=== PATIENT | female | born 1975 | race Caucasian/White ===

== ENCOUNTER 2017-03-13 20:13 | Observation (INO) | payer MEDICAID, SELFPAY ==
[~2017-03-13 20:13] MED LIST: ISOVUE-370 76%-LOCM 1 ML ONE
--- NOTE | 2017-03-13 20:38 | CT ---
CT HEAD WITHOUT CONTRAST: 03/13/17 Multiple axial tomograms obtained through the head without IV enhancement. HISTORY: Stroke alert. Left side facial droop and left upper extremity weakness. The ventricles have normal size and position. There is no evidence of cortical infarct. There is no e vidence of mass, edema, or hemorrhage. The sinuses and mastoids are well aerated. IMPRESSION: No evidence of acute abnormality. Findings relayed to Dr. Angel at 8:26 p.m. POS: [facility]
--- NOTE | 2017-03-13 20:53 | RAD ---
PORTABLE CHEST: 03/13/17 HISTORY: Left face numbness. FINDINGS/IMPRESSION: The lungs are clear. No infiltrate seen. The heart size is upper normal. No acute lung process identi fied. POS: [facility]
[2017-03-13 21:06] LABS: #Basophils 0.1 thou/uL (0.0-0.2); #Eosinphils 0.3 thou/uL (0.0-0.7); #Lymphocytes 3.1 thou/uL (1.20-3.40); #Monocytes 0.5 thou/uL (0.11-0.59); #Neutrophils 3.4 thou/uL (1.40-6.50); %Basophils 1.1 % (0.0-1.0); %Eosinophils 3.6 % (0.0-10.0); %Lymphocytes 42.7 % (21.0-51.0); %Monocytes 6.4 % (0.0-10.0); Hematocrit 39.5 % (36.0-47.0); Mean Platelet Volume 6.7 fL (7.4-10.4); White Blood Cell (WBC) Count 7.2 thou/uL (4.8-10.8)
[2017-03-13 21:12] LABS: PTT 28.1 SEC (22.9-36.1); Prothrombin Time 13.3 SEC (12.0-14.7)
[2017-03-13 21:18] LABS: Lactic Acid - Sepsis 2.2 mmol/L (0.5-2.2)
[2017-03-13 21:20] LABS: ALT (SGPT) 98 U/L (8-55); AST (SGOT) 83 U/L (5-34); Alkaline Phosphatase 78 U/L (40-150); Anion Gap 17 mmol/L (10-20); BUN (Urea Nitrogen) 17 mg/dL (7.0-18.7); Bilirubin, Total 0.4 mg/dL (0.2-1.2); Calc. Creatinine Clearance 0 mL/min (70-130); Calcium 8.8 mg/dL (7.8-10.44); Carbon Dioxide 19 mmol/L (22-29); Chloride 102 mmol/L (98-107); Estimated GFR-MDRD 87; Globulin 3.7 g/dL (2.4-3.5); Magnesium 2.1 mg/dL (1.6-2.6); Protein, Total 7.7 g/dL (6.0-8.3)
[2017-03-13 21:24] LABS: Troponin I Less than 0.010 ng/mL (< 0.028)
[2017-03-13 21:33] LABS: Bilirubin Negative (Negative); Blood, Urine Negative (Negative); Glucose, Urine (Dipstick) 250 mg/dL (Negative); Ketone, Urine Negative (Negative); Nitrite Negative (Negative); Protein, Urine (Dipstick) Negative (Neg-Trace); Urobilinogen 0.2 mg/dL (0.2-1.0)
--- NOTE | 2017-03-13 21:35 | CT ---
CT ANGIO OF NECK: 03/13/17 Multiple axial tomograms obtained through the neck with IV enhancement and arterial phase following a [facility] protocol with multiplanar reconstruction and 3D postprocessing. HISTORY: Left sided weakness. Stroke alert. FINDINGS: No evidence of stenosis at the origin of the arch vessels. Both common carotid arteries are unremarka ble. Carotid bifurcation and internal carotid arteries are also unremarkable. There is no evidence of extracranial carotid dissection or stenosis. The vertebral arteries are patent and appear unremarkable. IMPRESSION: Unremarkable CT angio neck. CT ANGIO OF HEAD: Multiple axial tomograms obtained through the head to assess cerebral circulation with angio protocol , multiplanar reconstructions, and 3D postprocessing. HISTORY: Left sided weakness. Stroke alert. The intracranial internal carotid arteries appear unremarkable. Anterior cerebral arteries and middle cerebral arteries are patent and symmetric. The basilar artery is patent. Posterior cerebrals are pa tent and symmetric. No evidence of stenosis or occlusion identified. IMPRESSION: Unremarkable CT angio of head. POS: [facility]
[2017-03-13 21:43] LABS: Amphetamine Not Detected (NotDetected); Methadone Not Detected (NotDetected); Methamphetamine Not Detected (NotDetected)
[2017-03-13] MEDS ORDERED: Acetaminophen 500 MG TAB ONE (23:10)
[2017-03-13 23:39] LABS: Troponin I Less than 0.010 ng/mL (< 0.028)
[2017-03-13] MEDS ORDERED: Ondansetron ODT 4 MG TAB SL PRN (23:58)
[2017-03-13] MEDS ORDERED: Ondansetron HCl/PF 4 MG/2 ML Vial IVP PRN (23:58)
[2017-03-13] MEDS ORDERED: Acetaminophen 325 MG TAB PO PRN (23:58)
[2017-03-14 00:20] VITALS: BMI 32.6
[2017-03-14] MEDS ORDERED: Dextrose 5% in Water 1,000 ML IV PRN (00:44)
[2017-03-14] MEDS ORDERED: Guaifenesin DM 100-10/5 ML UDCUP PO PRN (00:44)
[2017-03-14] MEDS ORDERED: Senokot 8.6 MG TAB PO PRN (00:44)
[2017-03-14] MEDS ORDERED: Acetaminophen 325 MG TAB PO PRN (00:44)
[2017-03-14] MEDS ORDERED: Dextrose 50% Abboject 50 ML SYRINGE SLOW IVP PRN (00:44)
[2017-03-14] MEDS ORDERED: HumaLOG 300 UNITS/3 ML VIAL SC PRN (00:44)
[2017-03-14] MEDS ORDERED: Mag-Al 1200 mg/1200 mg/30 ML UDCUP PO PRN (00:44)
[2017-03-14] MEDS ORDERED: Labetalol HCl 100 MG/20 ML VIAL SLOW IVP PRN (00:44)
[2017-03-14] MEDS: Morphine PF 1 MG/ML SYR IVP PRN ×3 (01:16→16:40)
[2017-03-14 05:28] LABS: #Basophils 0.1 thou/uL (0.0-0.2); #Eosinphils 0.3 thou/uL (0.0-0.7); #Monocytes 0.6 thou/uL (0.11-0.59); #Neutrophils 3.1 thou/uL (1.40-6.50); %Basophils 1.3 % (0.0-1.0); %Eosinophils 3.9 % (0.0-10.0); %Lymphocytes 49.3 % (21.0-51.0); %Monocytes 7.6 % (0.0-10.0); Hematocrit 39.1 % (36.0-47.0); Mean Platelet Volume 6.8 fL (7.4-10.4); Red Blood Cell (RBC) Count 4.08 mill/uL (4.20-5.40); White Blood Cell (WBC) Count 8.1 thou/uL (4.8-10.8)
[2017-03-14 05:33] LABS: Hemoglobin A1c 6.7 % (4.0-6.0)
[2017-03-14 05:53] LABS: ALT (SGPT) 98 U/L (8-55); AST (SGOT) 79 U/L (5-34); Alkaline Phosphatase 71 U/L (40-150); Anion Gap 15 mmol/L (10-20); BUN (Urea Nitrogen) 15 mg/dL (7.0-18.7); Bilirubin, Total 0.3 mg/dL (0.2-1.2); Calc. Creatinine Clearance 175 mL/min (70-130); Calcium 9.8 mg/dL (7.8-10.44); Carbon Dioxide 22 mmol/L (22-29); Chloride 104 mmol/L (98-107); Cholesterol 233 mg/dl (< 200 Desired); Estimated GFR-MDRD Greater than 90; LDL Cholesterol, Calculated 148 mg/dL
--- NOTE | 2017-03-14 06:41 | HP ---
REASON FOR ADMISSION: Left face numbness and weakness with left upper extremity weakness prior to arrival. HISTORY OF PRESENT ILLNESS: The patient gives a history of face numbness and weakness, which started around 5:00 p.m. This was associated with left upper extremity weakness as well, which completely got resolved on arrival in the ER. She has had headache for the last two days. She has no complaints of cough or expectoration. No complaints of chest pain, palpitation, PND or orthopnea. On arrival here in the ER, she has had CT angio of the brain and CT brain done, which have not revealed any acute stroke or abnormality. The patient states she moved from [place] recently and has no primary care physician here in the area. She used to see Dr. Stokes in [place]. PAST MEDICAL AND SURGICAL HISTORY: History of chronic DVT and PE starting from 1989. She has been chronically on Eliquis. She thinks she has ?hereditary thrombosis, but she cannot recollect which one. Hypertension, gastroesophageal reflux disease, both knee surgery, hysterectomy. CURRENT MEDICATIONS: She is on Norvasc 10 mg daily, potassium chloride 10 mEq p.o. daily, Protonix 40 mg daily, benazepril with hydrochlorothiazide 20/25 mg p.o. daily, Lasix 40 mg p.o. daily, [place] p.r.n. for pain, Eliquis 5 mg twice daily. ALLERGIES: To CELEBREX, TORADOL, ULTRAM. PERSONAL HISTORY: Does not abuse alcohol or drugs. No history of smoking. Lives with her . FAMILY HISTORY: Mother is on hemodialysis for end-stage renal disease and has had hypertension as well. Father is healthy. REVIEW OF SYSTEMS: The following complete review of systems was negative, unless otherwise mentioned in the HPI or below: Constitutional: Weight loss or gain, ability to conduct usual activities. Skin: Rash, itching. Eyes: Double vision, pain. ENT/Mouth: Nose bleeding, neck stiffness, pain, tenderness. Cardiovascular: Palpitations, dyspnea on exertion, orthopnea. Respiratory: Shortness of breath, wheezing, cough, hemoptysis, fever or night sweats. Gastrointestinal: Poor appetite, abdominal pain, heartburn, nausea, vomiting, constipation, or diarrhea. Genitourinary: Urgency, frequency, dysuria, nocturia. Musculoskeletal: Pain, swelling. Neurologic/Psychiatric: Anxiety, depression. Allergy/Immunologic: Skin rash, bleeding tendency. PHYSICAL EXAMINATION: GENERAL: The patient is a 41-year-old female who is currently not in any acute distress. VITAL SIGNS: Blood pressure 189/86 on arrival, pulse 100 per minute, respiratory rate 20 per minute, temperature 98.7 degrees Fahrenheit, saturating 95% on room air. NECK: Supple, no elevated JVD. HEENT: Eyes: Extraocular muscles intact. Pupils reacting to light. Oral cavity mucous membranes are moist. No exudates or congestion. CARDIOVASCULAR: S1, S2 heard. Regular rhythm. RESPIRATORY: Air entry 2+ bilateral. No rales or rhonchi. ABDOMEN: Soft, bowel sounds heard. No tenderness, rigidity or guarding. EXTREMITIES: No peripheral edema or calf tenderness. VASCULAR SYSTEM: Peripheral pulses 2+ bilateral, no ischemic ulcerations or gangrene. CENTRAL NERVOUS SYSTEM: No focal deficits seen in all four extremities. She has strength of 5/5. Tone is normal in all 4 extremities. Reflexes are 2+ bilateral. Babinski is downgoing in both lower extremities. The patient appears to forcibly keep her left half of her face pulled. I say this because the left facial droop sometimes completely resolves when she is trying to talk, but then she realizes that and tries to pull it immediately to her left side. There was no tongue deviation. No other cranial nerve deficits seen. She is able to frown well and raise her eyebrows. PSYCHIATRIC: No obvious hallucinations or delusions. LABORATORY DATA AND IMAGING: Urine drug screen is positive for opiates and oxycodone. AST 83, ALT 98. Troponin I 0.01. Albumin is 4.0. Serum test is negative. TSH 1.82. Serum glucose is 199, serum bicarbonate 19, BUN 17 , creatinine 0.7. White count of 7, H&H is 13 and 39, platelet count is 221 with 46% neutrophils, MCV is 96. EKG done shows sinus tachycardia at 112 beats per minute. CLINICAL IMPRESSION AND PLAN: The patient will be under observation on stroke unit for what appeared to be a TIA on arrival. Currently, her left facial droop is likely a conversion disorder, nevertheless, would confirm the same from Neurology. She has had CT angio brain done, which has not revealed any acute abnormalities. CT brain has not revealed any acute abnormalities. She also has history of bilateral lower extremity DVTs off and on from 1989 and has had one episode of PE as well and is on Eliquis for the same. We will continue the same dose of Eliquis for now. We will give 1 dose of 325 mg aspirin and reduce it to 81 mg daily in view of her being on Eliquis. We will continue her Norvasc as before and a small dose of benazepril along with Lipitor. Once she is cleared by Neurology, the patient can be discharged home. No further workup will be ordered. We will obtain hemoglobin A1c in view of her serum sugars being 199 around 200 on arrival. Please note I have seen and examined the patient on 03/13/2017. [facility]
--- NOTE | 2017-03-14 08:59 | PDOC.PN ---
- Subjective Encounter Start Date: 03/14/17 Encounter Start Time: 08:57 Subjective: reports persistent symptoms of facial numbness and slurred speech - Objective Resuscitation Status: Resuscitation Status FULL:Full Resuscitation MAR Reviewed: Yes Vital Signs & Weight: Vital Signs (12 hours) Temp Pulse Resp BP Pulse Ox 03/14/17 07:39 97.8 F 97 18 104/90 92 L 03/14/17 04:06 97.7 F 99 17 127/80 96 03/14/17 00:45 98.7 F 103 H 20 95 I&O: 03/13/17 03/14/17 03/15/17 06:59 06:59 06:59 Intake Total 12 Balance 12 Result Diagrams: 03/14/17 04:52 03/14/17 04:52 Additional Labs: Accuchecks 03/14/17 06:28 POC Glucose 152 H Laboratory Tests 03/13/17 03/13/17 03/13/17 20:57 20:57 20:57 Hemoglobin A1c Lactic Acid 2.2 Troponin I Less than 0.010 Triglycerides Cholesterol TSH 3rd Generation 1.8213 Urine Opiates Screen Ur Oxycodone Screen Hepatitis A IgM Ab Hep Bs Antigen Hep B Core IgM Ab Hepatitis C Antibody 03/13/17 03/13/17 03/14/17 21:14 22:48 04:52 Hemoglobin A1c Lactic Acid Troponin I Less than 0.010 Triglycerides 191 H Cholesterol 233 H TSH 3rd Generation Urine Opiates Screen Detected H Ur Oxycodone Screen Detected H Hepatitis A IgM Ab Hep Bs Antigen Hep B Core IgM Ab Hepatitis C Antibody 03/14/17 03/14/17 04:52 04:52 Hemoglobin A1c 6.7 H Lactic Acid Troponin I Triglycerides Cholesterol TSH 3rd Generation Urine Opiates Screen Ur Oxycodone Screen Hepatitis A IgM Ab Non-Reactive Hep Bs Antigen Non-Reactive Hep B Core IgM Ab Non-Reactive Hepatitis C Antibody Non-Reactive Radiology Reviewed by me: Yes (CTA -no CVA) Phys Exam - Physical Examination Constitutional: NAD HEENT: PERRLA, moist MMs, sclera anicteric, oral pharynx no lesions Neck: no nodes, no JVD, supple, full ROM Respiratory: no wheezing, no rales, no rhonchi, clear to auscultation bilateral Cardiovascular: RRR, no significant murmur Gastrointestinal: soft, non-tender, no distention, positive bowel sounds Musculoskeletal: no edema, pulses present Neurological: normal sensation, moves all 4 limbs variable "facial droop",halting speech Psychiatric: normal affect, A&O x 3 Dx/Plan (1) Left facial numbness Code(s): R20.0 - ANESTHESIA OF SKIN Status: Acute (2) TIA (transient ischemic attack) Status: Suspected (3) HTN (hypertension) Code(s): I10 - ESSENTIAL (PRIMARY) HYPERTENSION Status: Chronic (4) Hyperglycemia Code(s): R73.9 - HYPERGLYCEMIA, UNSPECIFIED Status: Chronic (5) H/O deep venous thrombosis Code(s): Z86.718 - PERSONAL HISTORY OF OTHER VENOUS THROMBOSIS AND EMBOLISM Status: Chronic (6) Chronic anticoagulation Code(s): Z79.01 - SN[facility] (CURRENT) USE OF ANTICOAGULANTS Status: Chronic (7) HLD (hyperlipidemia) Code(s): E78.5 - HYPERLIPIDEMIA, UNSPECIFIED Status: Acute - Plan plan discussed w/ family, out of bed/ambulate, DVT proph w/SCDs Unclear if symptoms are true .? TIA.Cont ASA.Neurology eval pending -: Pt made aware of possible DM,new diagnosis.will start Metformin. -: advised dietry discretion given high TG & Cholesterol despite statins. -: May DC home later on ASA.Cont Eliquis. -: +ve Oxycodone on UDS * . Review of Systems - Review of Systems Constitutional: negative: Fever, Chills, Sweats, Weakness, Malaise, Other Eyes: negative: Pain, Vision Change, Conjunctivae Inflammation, Eyelid Inflammation, Redness, Other Respiratory: negative: Cough, Dry, Shortness of Breath, Hemoptysis, SOB with Excertion, Pleuritic Pain, Sputum, Wheezing Cardiovascular: negative: Chest Pain, Palpitations, Orthopnea, Paroxysmal Noc. Dyspnea, Edema, Light Headedness, Other Gastrointestinal: negative: Nausea, Vomiting, Abdominal Pain, Diarrhea, Constipation, Melena, Hematochezia, Other Genitourinary: negative: Dysuria, Frequency, Incontinence, Hematuria, Retention , Other Musculoskeletal: negative: Neck Pain, Shoulder Pain, Arm Pain, Back Pain, Hand Pain, Leg Pain, Foot Pain, Other Neurological: Numbness, Change in Speech. negative: Weakness, Incoordination, Confusion, Seizures, Other - Medications/Allergies Allergies/Adverse Reactions: Allergies Allergy/AdvReac Type Severity Reaction Status Date / Time celecoxib [From Celebrex] Allergy Verified 03/13/17 23:56 ketorolac [From Toradol] Allergy Verified 03/13/17 23:56 tramadol Allergy Verified 03/13/17 23:56 Medications: Current Medications Acetaminophen (Tylenol) 650 mg PO Q4H PRN PRN Reason: Headache/Fever or Pain Al Hydroxide/Mg Hydroxide (Maalox) 30 ml PO Q6H PRN PRN Reason: Heartburn or Indigestion Amlodipine Besylate (Norvasc) 10 mg PO DAILY [facility] Apixaban (Eliquis) 5 mg PO BID [facility] Aspirin (Ecotrin) 81 mg PO DAILY [facility] Atorvastatin Calcium (Lipitor) 10 mg PO HS [facility] Benazepril HCl (Lotensin) 5 mg PO DAILY [facility] Dextrose/Water (Dextrose 50%) 25 gm SLOW IVP PRN PRN PRN Reason: Hypoglycemia Famotidine (Pepcid) 20 mg PO BID [facility] Glucagon (Glucagon) 1 mg IM PRN PRN PRN Reason: Hypoglycemia Guaifenesin/Dextromethorphan (Robitussin Dm) 15 ml PO Q4H PRN PRN Reason: Cough Dextrose/Water (D5w) 1,000 mls @ 0 mls/hr IV .Q0M PRN; As Directed PRN Reason: Hypoglycemia Insulin Human Lispro (Humalog) 0 units SC .MILD SLIDING SCALE PRN PRN Reason: Mild Correctional Scale Labetalol HCl (Normodyne) 20 mg SLOW IVP Q1H PRN PRN Reason: BP > 220/110 Morphine Sulfate (Duramorph) 2 mg IVP Q4H PRN PRN Reason: Chest Pain/BP Elevations Last Admin: 03/14/17 01:16 Dose: 2 mg Senna (Senokot) 2 tab PO HSPRN PRN PRN Reason: Constipation
[2017-03-14] MEDS ORDERED: Aspirin 325 mg Enteric Coated Tablet PO SCH (09:00)
[2017-03-14] MEDS: Famotidine 20 MG TAB PO SCH ×2 (14:16→20:16)
[2017-03-14] MEDS: Apixaban 5 MG TAB PO SCH ×2 (14:17→20:16)
[2017-03-14] MEDS: Amlodipine 10 MG TAB PO SCH (14:18)
[2017-03-14] MEDS: Aspirin 81 mg Enteric Coated Tablet PO SCH (14:18)
[2017-03-14] MEDS ORDERED: Atorvastatin Calcium 10 MG TAB PO SCH (21:00)
[2017-03-15] MEDS: Morphine PF 1 MG/ML SYR IVP PRN (01:10)
[2017-03-15 07:54] VITALS: TEMP 98
[2017-03-15] MEDS ORDERED: metFORMIN XR 500 MG TAB PO SCH (08:00)
[2017-03-15] MEDS ORDERED: Atorvastatin Calcium 10 MG TAB PO SCH (08:34)
--- NOTE | 2017-03-15 08:42 | PDOC.PN ---
- Subjective Encounter Start Date: 03/15/17 Encounter Start Time: 08:42 Subjective: feels the same - Objective Resuscitation Status: Resuscitation Status FULL:Full Resuscitation MAR Reviewed: Yes Vital Signs & Weight: Vital Signs (12 hours) Temp Pulse Resp BP Pulse Ox 03/15/17 07:15 98 F 84 16 131/63 97 03/15/17 03:14 97.8 F 97 16 111/52 L 96 03/14/17 23:04 97.8 F 105 H 16 121/84 97 Weight Weight 8.028 oz I&O: 03/14/17 03/15/17 03/16/17 06:59 06:59 06:59 Intake Total 12 1001 Balance 12 1001 Result Diagrams: 03/14/17 04:52 03/14/17 04:52 Phys Exam - Physical Examination Constitutional: NAD HEENT: PERRLA, moist MMs, sclera anicteric, oral pharynx no lesions Neck: no nodes, no JVD, supple, full ROM Respiratory: no wheezing, no rales, no rhonchi, clear to auscultation bilateral Cardiovascular: RRR, no significant murmur, no rub, gallop Gastrointestinal: soft, non-tender, no distention, positive bowel sounds Musculoskeletal: no edema, pulses present Neurological: non-focal, normal sensation, moves all 4 limbs seen without facial droop when walking into the room Psychiatric: normal affect, A&O x 3 Skin: no rash Dx/Plan (1) Left facial numbness Code(s): R20.0 - ANESTHESIA OF SKIN Status: Acute (2) TIA (transient ischemic attack) Status: Suspected (3) HTN (hypertension) Code(s): I10 - ESSENTIAL (PRIMARY) HYPERTENSION Status: Chronic (4) Hyperglycemia Code(s): R73.9 - HYPERGLYCEMIA, UNSPECIFIED Status: Chronic (5) H/O deep venous thrombosis Code(s): Z86.718 - PERSONAL HISTORY OF OTHER VENOUS THROMBOSIS AND EMBOLISM Status: Chronic (6) Chronic anticoagulation Code(s): Z79.01 - [facility] (CURRENT) USE OF ANTICOAGULANTS Status: Chronic (7) HLD (hyperlipidemia) Code(s): E78.5 - HYPERLIPIDEMIA, UNSPECIFIED Status: Acute - Plan plan discussed w/ family, DVT proph w/SCDs unclear TIA.Coversion Vs malignering.will cont ASA w statin for now. -: Neurology could not see the pt.will give OP appointment. -: Pt stable for DC.needs to f/u w PCP. -: see DC summary for details * . Review of Systems - Medications/Allergies Allergies/Adverse Reactions: Allergies Allergy/AdvReac Type Severity Reaction Status Date / Time celecoxib [From Celebrex] Allergy Verified 03/13/17 23:56 ketorolac [From Toradol] Allergy Verified 03/13/17 23:56 tramadol Allergy Verified 03/13/17 23:56 Medications: Current Medications Acetaminophen (Tylenol) 650 mg PO Q4H PRN PRN Reason: Headache/Fever or Pain Last Admin: 03/14/17 22:52 Dose: 650 mg Al Hydroxide/Mg Hydroxide (Maalox) 30 ml PO Q6H PRN PRN Reason: Heartburn or Indigestion Amlodipine Besylate (Norvasc) 10 mg PO DAILY [facility] Last Admin: 03/14/17 14:18 Dose: 10 mg Apixaban (Eliquis) 5 mg PO BID [facility] Last Admin: 03/14/17 20:16 Dose: 5 mg Aspirin (Ecotrin) 81 mg PO DAILY [facility] Last Admin: 03/14/17 14:18 Dose: 81 mg Atorvastatin Calcium (Lipitor) 20 mg PO [facility] Benazepril HCl (Lotensin) 5 mg PO DAILY [facility] Last Admin: 03/14/17 14:17 Dose: 5 mg Dextrose/Water (Dextrose 50%) 25 gm SLOW IVP PRN PRN PRN Reason: Hypoglycemia Famotidine (Pepcid) 20 mg PO BID [facility] Last Admin: 03/14/17 20:16 Dose: 20 mg Glucagon (Glucagon) 1 mg IM PRN PRN PRN Reason: Hypoglycemia Guaifenesin/Dextromethorphan (Robitussin Dm) 15 ml PO Q4H PRN PRN Reason: Cough Dextrose/Water (D5w) 1,000 mls @ 0 mls/hr IV .Q0M PRN; As Directed PRN Reason: Hypoglycemia Insulin Human Lispro (Humalog) 0 units SC .MILD SLIDING SCALE PRN PRN Reason: Mild Correctional Scale Labetalol HCl (Normodyne) 20 mg SLOW IVP Q1H PRN PRN Reason: BP > 220/110 Metformin HCl (Glucophage Xr) 500 mg PO QAM-WM [facility] Morphine Sulfate (Duramorph) 2 mg IVP Q4H PRN PRN Reason: Chest Pain/BP Elevations Last Admin: 03/15/17 01:10 Dose: 2 mg Senna (Senokot) 2 tab PO HSPRN PRN PRN Reason: Constipation
[2017-03-15] MEDS: Amlodipine 10 MG TAB PO SCH (08:44)
[2017-03-15] MEDS: Aspirin 81 mg Enteric Coated Tablet PO SCH (08:45)
[2017-03-15] MEDS: Apixaban 5 MG TAB PO SCH (08:45)
[2017-03-15] MEDS: Famotidine 20 MG TAB PO SCH (08:45)
[2017-03-15 08:46] VITALS: BP 156/78
--- NOTE | 2017-03-15 15:07 | DIS ---
DATE OF ADMISSION: 03/14/2017 DATE OF DISCHARGE: 03/15/2017 CONDITION AT THE TIME OF DISCHARGE: Stable and improved. DISCHARGE DIAGNOSES: 1. Transient ischemic attack versus malingering versus conversion 2. Dyslipidemia. 3. Hypertension. 4. New diagnosis of diabetes mellitus type 2. 5. Chronic anticoagulation per patient. DISCHARGE MEDICATIONS: Metformin XR 500 mg daily, Protonix 40 mg daily, Benazepril 1 tablet daily, a torvastatin 20 mg daily, aspirin 81 mg daily, Eliquis 5 mg p.o. b.i.d. and amlodipine 10 mg daily. CONSULTATION: Neurology. PROCEDURES DONE IN THE HOSPITAL: Include, 1. CT scan of the brain which is normal. 2. CT angio of the brain which was normal. 3. Chest x-ray which is normal. PRIMARY CARE PHYSICIAN: None. The patient has recently moved here from [place]. ADMISSION HISTORY: Ms. Frank is a 41-year-old female with self-stated history of pulmonary embolism and DVT on chronic anticoagulation who presented to the emergency room with complaints of left-sided facial numbness and left upper extremity weakness. She underwent a CT scan of the brain in the [facility] room which was unremarkable. She was admitted as a stroke alert to rule out CVA with possible diagnosis of TIA. Please see admission history and physical for further details. She actually had a CT angio done in the emergency room which did not show any acute abnormalities. She was restarted o n her Eliquis and started on low dose aspirin as well as statin and lipid panel was ordered. Please see admission history and physical for further details. HOSPITAL COURSE: The patient's lipid panel showed elevated triglycerides and cholesterol. She also had elevated blood sugars with hemoglobin A1c of 6.7. Her cardiac enzymes were normal. She was star shellie on metformin for the new diagnosis of diabetes. She also had oxycodone and opioid positive drug screen. She was found to have elevated liver enzymes with normal bilirubin. Her AST is elevated to 83 and ALT elevated to 90 with normal alkaline phosph atase. Her hepatitis acute panel was negative. With regards to her TIA, the patient was seen multiple times with waxing and waning symptoms with not ed conscious effort to induce facial droop. It is unclear if she has persistent symptoms 2 or 3 days after the onset. She was evaluated by speech therapist, and their evaluation did not reveal any pro blems with her swallowing even though the patient continued to use halting and somewhat slurred speec h. She was not on any aspiration precautions or special diet and was discharged from speech therapy services. The patient then reported difficulty with swallowing the pills; however, she was not found to have any swallowing problems per the speech therapist. Given all of the various reports from the nursing staff and my examination, it is unclear if the jeremias ent actually has TIA or rather this is a conversion disorder versus malingering. Anyways, she was st arted on low dose aspirin and Lipitor for her dyslipidemia and is instructed to follow up with Héctor mckeon as an outpatient. Unfortunately, Dr. Camargo could not see the patient while she was in the [facility], but we will see the patient once she is discharged in the clinic. The patient was seen and examined prior to discharge. Please see hospitalist progress note from 's date for further detail. All questions were answered and discharge plan was discussed with the p terrell and her . She is instructed to find a primary care physician as soon as possible. At this time, I have filled prescriptions including Eliquis. I am not sure if she is supposed to be on it or not, but the patient reports that her DVT and PE was within the last year and she has some i nheritable blood clot disorders. She needs to follow up with a primary care physician with that. I am not restarting her Lasix and potassium as it is unclear why she is on it. She will discuss it wit h the PCP once again. Total time spent is 35 minutes.
[2017-03-15] MEDS ORDERED: Atorvastatin Calcium 20 MG TAB PO SCH (21:00)
== END 2017-03-15 12:09 | disposition home or self-care (01) ==
LOC: ERS 20:13 → INTOOBSV 23:18 → 2SE 23:18
PROVIDERS: ADMIT Internal Medicine; ATTEND Internal Medicine
DX: R20.0 Anesthesia of skin (principal); E78.5 Hyperlipidemia, unspecified; I10 Essential (primary) hypertension; E11.9 Type 2 diabetes mellitus without complications; R53.1 Weakness; I82.5Z3 Chronic embolism and thrombosis of unspecified deep veins of distal lower extremity, bilateral; K21.9 Gastro-esophageal reflux disease without esophagitis; Z79.01 Long term (current) use of anticoagulants; Z79.899 Other long term (current) drug therapy; Z88.1 Allergy status to other antibiotic agents; Z88.5 Allergy status to narcotic agent; Z88.8 Allergy status to other drugs, medicaments and biological substances; Z90.710 Acquired absence of both cervix and uterus; Z98.890 Other specified postprocedural states; Z86.711 Personal history of pulmonary embolism
CPT/HCPCS: 36415; 36416; 70450; 70496; 70498; 71010; 80053; 80061; 80074; 80306; 81003; 82553; 83036; 83605; 83735; 84443; 84484; 84703; 85025; 85610; 85730; 93005; 96374; 96376; G0378; G8996-GN-CI; G8997-GN-CH; J2270; J2274

== ENCOUNTER 2017-05-08 16:27 | Emergency (ER) | payer MEDICAID, SELFPAY ==
[2017-05-08] MEDS ORDERED: Morphine 4 MG/ML Carpuject ONE (16:50)
--- NOTE | 2017-05-08 17:14 | RAD ---
FOUR VIEWS RIGHT KNEE 05/08/17 HISTORY: Right knee pain after slipping on ice and falling down five to six steps. FINDINGS: There are minimal scattered osteophytes about the knee. There is no significant joint space narrowing . No fracture or dislocation is seen involving the right knee. Views of the right knee are overall st able compared to a study on 08/14/16. IMPRESSION: Osteoarthritis without acute osseous abnormality right knee. POS: [facility]
--- NOTE | 2017-05-08 17:15 | RAD ---
TWO VIEWS RIGHT HIP 05/08/17 HISTORY: Patient slipped on ice and fell down five to six steps. Patient hit right knee on edge of step and la nded on right hip. Right hip pain. FINDINGS: Postsurgical changes of right hemipelvis are noted. There is no evidence of a fracture or dislocation involving the right hip. No other osseous abnormality. IMPRESSION: No acute osseous abnormality right hip. POS: [facility]
== END 2017-05-08 17:26 | disposition home or self-care (01) ==
LOC: SCSER 16:27
DX: S70.01XA Contusion of right hip, initial encounter (principal); S80.01XA Contusion of right knee, initial encounter; E11.9 Type 2 diabetes mellitus without complications; E78.5 Hyperlipidemia, unspecified; I10 Essential (primary) hypertension; W10.9XXA Fall (on) (from) unspecified stairs and steps, initial encounter
CPT/HCPCS: 96372; J2270

== ENCOUNTER 2018-07-27 18:57 | Inpatient (IN) | payer BC, SELFPAY ==
--- NOTE | 2018-07-27 19:12 | CT ---
FCT Brain WO Con: 07/27/2018 12:00 AM CLINICAL HISTORY: Right-sided weakness. COMPARISON: None. FINDINGS: Hemorrhage: None. Ventricular system: Normal in size and morphology for the patient's age. Cerebral parenchyma: Normal Midline shift: None. Mass: No mass effect. Calvarium: Normal. Visualized Paranasal sinuses: Clear. IMPRESSION: No acute intracranial abnormalities. Notifications of findings placed at 1905 hours.
[2018-07-27 19:21] LABS: #Basophils 0.1 thou/uL (0.0-0.2); #Eosinphils 0.1 thou/uL (0.0-0.7); #Lymphocytes 2.6 thou/uL (1.20-3.40); #Monocytes 0.4 thou/uL (0.11-0.59); #Neutrophils 3.4 thou/uL (1.40-6.50); %Basophils 1.1 % (0.0-1.0); %Eosinophils 2.1 % (0.0-10.0); %Lymphocytes 39.4 % (21.0-51.0); %Monocytes 6.1 % (0.0-10.0); %Neutrophils 51.3 % (42.0-75.0); Hemoglobin 14.4 g/dL (12.0-16.0); Mean Corpuscular HGB CONC 33.1 g/dL (32.0-36.0); Mean Corpuscular Hemoglobin 31.4 pg (27.0-31.0); Mean Corpuscular Volume 94.8 fL (78.0-98.0); Mean Platelet Volume 6.9 fL (7.4-10.4); Platelet Count 228 thou/uL (130-400); RBC Distribution Width 11.5 % (11.5-14.5); Red Blood Cell (RBC) Count 4.59 mill/uL (4.20-5.40); White Blood Cell (WBC) Count 6.7 thou/uL (4.8-10.8)
[2018-07-27 19:24] LABS: PTT 26.4 SEC (22.9-36.1); Prothrombin Time 13.8 SEC (12.0-14.7)
--- NOTE | 2018-07-27 19:33 | CT ---
FCTA of the head with and without IV contrast and 3-D reformatted imaging. CTA of the neck with IV contrast and 3-D reformatted imaging 3 D Volume Rendering: DATE: 07/27/2018 12:00 AM HISTORY: Right-sided weakness and right facial droop, new onset. Clinical history of stroke COMPARISON: None FINDINGS: Right: CCA:No significant stenosis. ICA:No significant stenosis. MCA:No significant stenosis. LAUREN:No significant stenosis. MEDICAL COST CONSULTANT:No significant stenosis. LEFT: CCA:No significant stenosis. ICA:No significant stenosis. MCA:No significant stenosis. LAUREN:No significant stenosis. MEDICAL COST CONSULTANT:No significant stenosis. Vertebrobasilar System: Left Vertebral:No significant stenosis. Right Vertebral:No significant stenosis. Basilar:No significant stenosis. IMPRESSION: No hemodynamically significant stenosis, occlusion or aneurysmal dilation. Notification of findings placed at 1927 hours.
[2018-07-27 19:34] LABS: ALT (SGPT) 259 U/L (8-55); AST (SGOT) 508 U/L (5-34); Albumin 4.7 g/dL (3.5-5.0); Alkaline Phosphatase 79 U/L (40-150); Anion Gap 14 mmol/L (10-20); BUN (Urea Nitrogen) 12 mg/dL (7.0-18.7); Bilirubin, Total 0.8 mg/dL (0.2-1.2); CK (CPK) 37 U/L (29-168); Calc. Creatinine Clearance 0 mL/min (70-130); Calcium 10.5 mg/dL (7.8-10.44); Carbon Dioxide 28 mmol/L (22-29); Chloride 97 mmol/L (98-107); Estimated GFR-MDRD 72; Globulin 4.3 g/dL (2.4-3.5); Glucose 215 mg/dL (70-105); Potassium 4.2 mmol/L (3.5-5.1); Sodium 135 mmol/L (136-145)
[2018-07-27] MEDS ORDERED: Metoclopramide HCl 10 MG/2 ML VIAL ONE (19:44)
[2018-07-27] MEDS ORDERED: diphenhydrAMINE 50 MG/ML VIAL ONE (19:44)
[2018-07-27 19:51] LABS: Bilirubin Negative (Negative); Blood, Urine Negative (Negative); Clarity CLEAR (Clear); Glucose, Urine (Dipstick) 500 mg/dL (Negative); Leukocyte Negative (Negative); Nitrite Negative (Negative); Protein, Urine (Dipstick) Negative (Neg-Trace); Urobilinogen 0.2 mg/dL (0.2-1.0); pH, Urine 6.5 (5.0-9.0)
[2018-07-27] MEDS ORDERED: Aspirin Chewable 81 MG TAB ONE (19:57)
[2018-07-27 20:01] LABS: Amphetamine Not Detected (NotDetected); Barbiturates Screen Not Detected (NotDetected); Benzodiazepine Screen Not Detected (NotDetected); Cocaine Metabolite Screen Not Detected (NotDetected); Medtox Control Line Valid? VALID (VALID); Medtox Reader # READER 4; Methadone Not Detected (NotDetected); Methamphetamine Not Detected (NotDetected); Opiate Screen Detected (NotDetected); Oxycodone Screen Not Detected (NotDetected); Phencyclidine (PCP) Not Detected (NotDetected); THC/Cannabinoid Screen Not Detected (NotDetected); Tricyclic Screen Not Detected (NotDetected)
[2018-07-27] MEDS ORDERED: methylPREDNISolone Sod Succ/PF 125 MG/2 ML VIAL ONE (21:06)
[2018-07-27] MEDS ORDERED: Magnesium 2 GM/50 ML BAG (IN WATER) ONE (21:06)
[2018-07-27] MEDS ORDERED: Ondansetron PF 4 MG/2 ML Vial IVP PRN (22:41)
[2018-07-27] MEDS ORDERED: Bisacodyl 10 MG SUPP PR PRN (22:41)
[2018-07-27] MEDS ORDERED: Senokot S 8.6-50 MG TAB PO PRN (22:41)
[2018-07-27] MEDS ORDERED: Eucerin (Mineral Oil/Petrolatum,White) 30 gm Jar TOP PRN (22:41)
[2018-07-27] MEDS ORDERED: hydrALAZINE 20 MG/ML VIAL SLOW IVP PRN (22:41)
[2018-07-27] MEDS ORDERED: Ondansetron ODT 4 MG TAB PO PRN (22:41)
[2018-07-27] MEDS ORDERED: Dextrose 50% Abboject 50 ML SYRINGE SLOW IVP PRN (22:41)
[2018-07-27] MEDS ORDERED: Artificial Tears 18 DROP/0.9 ML EA EYE PRN (22:41)
[2018-07-27] MEDS ORDERED: Sodium Chloride 0.65% Nasal 44 ML BOT EA NARE PRN (22:41)
[2018-07-27] MEDS ORDERED: Diabetic Tussin 200 MG/10 ML UDCUP PO PRN (22:41)
[2018-07-27] MEDS ORDERED: Dextrose 5% in Water 1,000 ML IV PRN (22:41)
[2018-07-27] MEDS ORDERED: Loperamide HCl 2 MG CAP PO PRN (22:41)
[2018-07-27] MEDS ORDERED: Ketorolac Tromethamine 30 MG/ML VIAL IVP SCH (22:45)
[2018-07-27 22:49] VITALS: BMI 31.0
[2018-07-27] MEDS ORDERED: Morphine 4 MG/ML VIAL SLOW IVP SCH (23:30)
--- NOTE | 2018-07-28 02:41 | HP ---
PRIMARY CARE PHYSICIAN: [facility] Call Admission. REASON FOR ADMISSION: CVA. DATE OF SERVICE: 07/27/2018 HISTORY OF PRESENT ILLNESS: A 42-year-old female who initially went to [facility] Emergency Room for complaint of headache. The patient was started having slurred speech and facial droop and that is why stroke alert was initiated from [facility] ER and subsequently, the patient was brought to our emergency room. She had CT angiography which was negative. The patient's symptomatology started around 4 p.m. The patient was only having facial droop and right upper extremity weakness and right lower extremity weakness. Weakness on the right upper extremity was more than lower extremity. In the emergency room, the patient was not given any tPA. When I saw this patient at that time, she was having predominantly right upper extremity weakness and facial palsy. The patient is on chronic anticoagulation therapy for history of DVT and PE with Eliquis. REVIEW OF SYSTEMS: CONSTITUTIONAL: Negative for weight loss or gain, ability to conduct usual activities. SKIN: Negative for rash, itching. EYES: Negative for double vision, pain. ENT/MOUTH: Negative for nose bleeding, neck stiffness, pain, tenderness. CARDIOVASCULAR: Negative for palpitations, dyspnea on exertion, orthopnea. RESPIRATORY: Negative for shortness of breath, wheezing, cough, hemoptysis, fever or night sweats. GASTROINTESTINAL: Negative for poor appetite, abdominal pain, heartburn, nausea , vomiting, constipation, or diarrhea. GENITOURINARY: Negative for urgency, frequency, dysuria, nocturia. MUSCULOSKELETAL: Negative for pain, swelling. NEUROLOGIC/PSYCHIATRIC: Negative for anxiety, depression. ALLERGY/IMMUNOLOGIC: Negative for skin rash, bleeding tendency. Please see my HPI for pertinent positive and negative. All other review of systems reviewed and negative except as mentioned in HPI. ALLERGIES: CELEBREX, TORADOL, TRAMADOL. CURRENT HOME MEDICATIONS: 1. Eliquis 5 mg p.o. daily. 2. [place] on as needed basis. PAST MEDICAL HISTORY: History of chronic DVT and PE, chronic anticoagulation with Eliquis, gastroesophageal reflux disease, hypertension. PAST SURGICAL HISTORY: Knee surgery and hysterectomy. PAST PSYCHIATRIC HISTORY: Reviewed and negative. FAMILY HISTORY: Mother has ESRD on dialysis. Hypertension runs among several family members. EMERGENCY ROOM COURSE: The patient has received magnesium sulfate, Solu-Medrol 125 mg, aspirin 324 mg, Reglan 10 mg, IV fluid, Benadryl 25 mg. SOCIAL HISTORY: The patient is . No history of tobacco, alcohol, illicit drug abuse. PHYSICAL EXAMINATION: VITAL SIGNS: On arrival, blood pressure 206/94, pulse 106, respiratory rate 18, temperature 98.6, saturation 95% on room air, weight 90.6 kg. GENERAL: The patient is currently alert, oriented, in no acute distress. HEENT: Head; normocephalic, atraumatic. Eyes; pupils round, reactive to light. Extraocular muscle intact. ENT: Oropharynx within normal limits. Moist mucous membranes. No oral lesion. No pharyngeal erythema. No exudate. NECK: Supple. No JVD. No thyromegaly. No carotid bruit. No jugular venous distention. LUNGS: Clear to auscultation without any rhonchi or rales. CARDIAC: S1, S2 regular. No murmur. No gallop. No rub. ABDOMEN: Soft, bowel sounds present. Nontender. Nondistended. No organomegaly. No mass. No suprapubic tenderness. BACK: Examination unremarkable, no CVA tenderness. EXTREMITIES: Upper extremities, passive movement of all joints are normal. Lower extremity, no edema. Good distal pulsation. SKIN: No skin rash. HEMATOLOGICAL: No lymphadenopathy. NEUROLOGIC: The patient is alert and oriented x3. Cranial nerve 2-12 showed 7th UMN palsy on the right side. Right upper extremity pronator drift and weakness about 3/5. Lower extremity 4/5, left-sided within normal limit. Sensation intact. Reflex is symmetrical. Plantar bilateral flexor. SIGNIFICANT LABS: Urine drug screen positive for opiates. Alcohol level less than 10. Urinalysis normal. BMP sodium 135, potassium 4.2, chloride 97, carbon dioxide 28, BUN 12, creatinine 0.86, glucose 215, calcium 10.5, AST 508, ALT 259, alkaline phosphatase 79, albumin 4.7, total protein 9.0. Troponin less than 0.010. INR 1.0. CBC; WBC 6.7, hemoglobin 14.4, and platelet 228. ASSESSMENT/PLAN: 1. Acute cerebrovascular accident. This patient has 7th upper motor neuron palsy, right upper extremity weakness as well as lower extremity weakness, more on the right upper extremity. CT angiography and CT brain is unremarkable. The patient has underlying hypercoagulable disorder. The patient's blood pressure was also very high on admission, which is untreated. At this point, patient will require admission. We will obtain MRI brain. Neurology will be consulted. Entire stroke team will be consulted. Bedside swallow evaluation. Speech therapy consultation. manager functional for discharge planning. We will also check DAWIT, RPR, ESR, PT, INR , and lipid profile tomorrow. We will also check homocystine, hemoglobin A1c tomorrow. 2. Abnormal liver function test, etiology uncertain. We will obtain a right upper quadrant ultrasound. We will check hepatitis profile. We are checking DAWIT. We will repeat liver function test tomorrow. 3. History of chronic deep venous thrombosis and pulmonary embolism on chronic anticoagulation. We will continue Eliquis 5 mg p.o. daily. 4. Deep venous thrombosis prophylaxis. The patient is already on Eliquis therapy. Gastrointestinal prophylaxis, Pepcid 20 mg p.o. b.i.d. CODE STATUS: The patient is full code. The patient's is surrogate decision maker. 5. Diabetes type 2. We will continue insulin as per sliding scale protocol. Check hemoglobin A1c. 6. Dyslipidemia. Start Lipitor 40 mg p.o. at bedtime when liver function test improves. DISPOSITION PLAN: Based on clinical course. We are expecting the patient's stay in hospital more than 2 midnights. Plan of care discussed with the patient and her at bedside. Job ID: [id number] [email or web address]
[2018-07-28] MEDS: Acetaminophen 325 MG TAB PO PRN ×2 (03:46→08:38)
[2018-07-28 05:31] LABS: #Lymphocytes 1.2 thou/uL (1.20-3.40); #Monocytes 0.1 thou/uL (0.11-0.59); %Basophils 0.1 % (0.0-1.0); %Eosinophils 0.1 % (0.0-10.0); %Lymphocytes 16.3 % (21.0-51.0); %Monocytes 0.8 % (0.0-10.0); %Neutrophils 82.6 % (42.0-75.0); Hemoglobin 13.2 g/dL (12.0-16.0); Mean Corpuscular HGB CONC 33.1 g/dL (32.0-36.0); Mean Corpuscular Hemoglobin 31.3 pg (27.0-31.0); Mean Corpuscular Volume 94.7 fL (78.0-98.0); Mean Platelet Volume 6.9 fL (7.4-10.4); Platelet Count 215 thou/uL (130-400); RBC Distribution Width 11.5 % (11.5-14.5); Red Blood Cell (RBC) Count 4.22 mill/uL (4.20-5.40); White Blood Cell (WBC) Count 7.2 thou/uL (4.8-10.8)
[2018-07-28 05:37] LABS: INR-International Normal Ratio 1.1; Prothrombin Time 14.2 SEC (12.0-14.7)
[2018-07-28 05:43] LABS: Hemoglobin A1c 11.5 % (4.0-6.0)
[2018-07-28 05:47] LABS: ALT (SGPT) 209 U/L (8-55); AST (SGOT) 301 U/L (5-34); Albumin 4.2 g/dL (3.5-5.0); Alkaline Phosphatase 76 U/L (40-150); Anion Gap 15 mmol/L (10-20); BUN (Urea Nitrogen) 13 mg/dL (7.0-18.7); Bilirubin, Total 0.6 mg/dL (0.2-1.2); Calc. Creatinine Clearance 122 mL/min (70-130); Calcium 9.6 mg/dL (7.8-10.44); Carbon Dioxide 21 mmol/L (22-29); Cardiac Risk 9.6 (Less than 4.5); Chloride 98 mmol/L (98-107); Cholesterol 347 mg/dl (< 200 Desired); Estimated GFR-MDRD 72; Globulin 4.1 g/dL (2.4-3.5); Glucose 401 mg/dL (70-105); HDL Cholesterol 36 mg/dL (>60 Neg Risk); LDL Cholesterol, Calculated 267 mg/dL; Potassium 4.1 mmol/L (3.5-5.1); Protein, Total 8.3 g/dL (6.0-8.3); Sodium 130 mmol/L (136-145); Triglycerides 222 mg/dL (Less than 150)
[2018-07-28 06:04] LABS: Syphilis Antibody Nonreactive (Nonreactive); Syphilis Antibody Index 0.08 S/CO (<1.00 Non-Reactive)
[2018-07-28 06:07] LABS: HBCM Index 0.09 S/CO (0-0.79); HBSAg Index 0.34 S/CO (0-0.99); Hep A IgM AB Non-Reactive (NonReactive); Hep A IgM S/CO 0.28 S/CO (0-0.79); Hep B Surf Ag Non-Reactive S/CO (NonReactive); Hep C IgG Ab Non-Reactive (NonReactive); Hep C Index 0.08 S/CO (0-0.79); Hepatitis B Core IgM Abs Non-Reactive (NonReactive)
[2018-07-28] MEDS: HumaLOG 300 UNITS/3 ML VIAL SC PRN ×4 (06:22→21:20)
--- NOTE | 2018-07-28 07:56 | ULT ---
FSonogram right upper quadrant HISTORY: Abnormal liver function tests. FINDINGS: The gallbladder is surgically absent. Common duct is 0.5 cm. Liver is diffusely echogenic w ithout focal mass or intrahepatic biliary dilatation. No free fluid. IMPRESSION: Status post cholecystectomy. No evidence of biliary obstruction. Hepatic steatosis.
[2018-07-28] MEDS: Apixaban 5 MG TAB PO SCH (08:22)
[2018-07-28] MEDS: Aspirin Chewable 81 MG TAB PO SCH (08:23)
[2018-07-28] MEDS: Famotidine 20 MG TAB PO SCH ×2 (08:23→21:19)
[2018-07-28] MEDS: Famotidine/PF 20 mg/2ml Vial SLOW IVP SCH ×2 (08:24→21:23)
[2018-07-28] MEDS ORDERED: Lorazepam 2 MG/ML VIAL SLOW IVP SCH (09:00)
--- NOTE | 2018-07-28 10:05 | MRI ---
[facility] brain noncontrast HISTORY: Right-sided weakness with facial numbness. FINDINGS: There is no evidence of acute intracranial hemorrhage or infarct. The ventricles appear nor mal in size, shape and position. There is no mass effect or shift of midline structures. Visualized p aranasal sinuses remain well aerated. IMPRESSION: No acute intracranial abnormalities are demonstrated.
[2018-07-28] MEDS: oxyCODONE 5 MG TAB PO PRN ×2 (12:30→17:19)
[2018-07-28] MEDS ORDERED: Insulin Glargine 10 UNITS in Pre-Filled Syringe 1 EACH SC SCH (15:15)
--- NOTE | 2018-07-28 16:23 | PDOC.PN ---
- Subjective Encounter Start Date: 07/28/18 Encounter Start Time: 10:30 Subjective: pt up in bed complains of weakness to her right upper and lower ext - Objective Resuscitation Status - Order Detail: 07/27/18 22:08 Resuscitation Status Routine Resuscitation Status: FULL: Full Resuscitation Vital Signs & Weight: Vital Signs (12 hours) Temp Pulse Pulse Resp BP BP Pulse Ox 07/28/18 15:54 98.0 F 99 16 147/100 H 92 L 07/28/18 15:00 95 144/108 H 07/28/18 13:56 90 127/77 07/28/18 11:39 97.8 F 94 16 130/80 97 07/28/18 08:23 97 97 07/28/18 07:45 97.9 F 97 16 182/102 H 96 Weight Weight 204 lb Result Diagrams: 07/28/18 05:21 07/28/18 05:21 Additional Labs: Accuchecks 07/28/18 07/28/18 07/27/18 10:59 05:14 19:02 POC Glucose 292 H 418 H 226 H Phys Exam - Physical Examination Neck: no nodes, no JVD, supple, full ROM Respiratory: no wheezing, no rales, no rhonchi, wheezing present, clear to auscultation bilateral Cardiovascular: RRR, no significant murmur, no rub, gallop, irregular Gastrointestinal: soft, non-tender, no distention, positive bowel sounds Musculoskeletal: no edema, pulses present, edema present right facial droop, right upper ext weakness Dx/Plan (1) Right sided weakness Code(s): R53.1 - WEAKNESS Status: Acute (2) H/O deep venous thrombosis Code(s): Z86.718 - PERSONAL HISTORY OF OTHER VENOUS THROMBOSIS AND EMBOLISM Status: Chronic (3) Hyperglycemia Code(s): R73.9 - HYPERGLYCEMIA, UNSPECIFIED Status: Chronic (4) HLD (hyperlipidemia) Code(s): E78.5 - HYPERLIPIDEMIA, UNSPECIFIED Status: Acute (5) Metabolic syndrome Code(s): E88.81 - METABOLIC SYNDROME Status: Acute - Plan will continue eliquis, pt's MRI brain, echo normal -: pt states that she was taken off her dm meds and her statin? -: will start her on tricor since her lfts are high, -: will start her on insulin, her hepatitis is negative and ruq indicated -: fatty liver * . Review of Systems - Review of Systems Respiratory: negative: Cough, Dry, Shortness of Breath, Hemoptysis, SOB with Excertion, Pleuritic Pain, Sputum, Wheezing Cardiovascular: negative: chest pain, palpitations, orthopnea, paroxysmal nocturnal dyspnea, edema, light headedness, other Gastrointestinal: negative: Nausea, Vomiting, Abdominal Pain, Diarrhea, Constipation, Melena, Hematochezia, Other Genitourinary: negative: Dysuria, Frequency, Incontinence, Hematuria, Retention , Other Musculoskeletal: negative: Neck Pain, Shoulder Pain, Arm Pain, Back Pain, Hand Pain, Leg Pain, Foot Pain, Other Neurological: Weakness - Medications/Allergies Allergies/Adverse Reactions: Allergies Allergy/AdvReac Type Severity Reaction Status Date / Time celecoxib [From Celebrex] Allergy Verified 07/27/18 22:41 ketorolac [From Toradol] Allergy Verified 07/27/18 22:41 tramadol Allergy Verified 07/27/18 22:41 Medications: Current Medications Acetaminophen (Tylenol) 650 mg PO Q4H PRN PRN Reason: Headache/Fever/Mild Pain (1-3) Last Admin: 07/28/18 08:38 Dose: 650 mg Apixaban (Eliquis) 5 mg PO DAILY [facility] Last Admin: 07/28/18 08:22 Dose: 5 mg Artificial Tears (Tears Naturale) 2 drop EA EYE PRN PRN PRN Reason: Dry Eyes Aspirin (Aspirin Chewable) 81 mg PO DAILY [facility] Last Admin: 07/28/18 08:23 Dose: 81 mg Bisacodyl (Dulcolax) 10 mg [place] DAILYPRN PRN PRN Reason: Constipation Dextrose/Water (Dextrose 50%) 25 gm SLOW IVP PRN PRN PRN Reason: Hypoglycemia Famotidine (Pepcid) 20 mg SLOW IVP Q12HR [facility] Last Admin: 07/28/18 08:24 Dose: Not Given Famotidine (Pepcid) 20 mg PO BID [facility] Last Admin: 07/28/18 08:23 Dose: 20 mg Fenofibrate (Tricor) 145 mg PO DAILY [facility] Glucagon (Glucagon) 1 mg IM PRN PRN PRN Reason: Hypoglycemia Guaifenesin (Robitussin Sf) 200 mg PO Q4H PRN PRN Reason: Cough Hydralazine HCl (Apresoline) 10 mg SLOW IVP Q4H PRN PRN Reason: SBP > 180 and HR < 70 Last Admin: 07/28/18 08:23 Dose: 10 mg Dextrose/Water (D5w) 1,000 mls @ 0 mls/hr IV .Q0M PRN PRN Reason: Hypoglycemia Insulin Glargine 10 units/ (Miscellaneous Medication) 0.1 mls @ 0 mls/hr SC QAM EMMA Insulin Glargine 10 units/ (Miscellaneous Medication) 0.1 mls @ 0 mls/hr SC NOW EMMA Stop: 07/28/18 18:15 Insulin Human Lispro (Humalog) 0 units SC .MODERATE SLIDING SC PRN PRN Reason: Moderate Correctional Scale Last Admin: 07/28/18 12:33 Dose: 6 unit Insulin Human Lispro (Humalog) 0 units SC .BEDTIME SLIDING SC PRN PRN Reason: Bedtime Correctional Scale Loperamide HCl (Imodium) 2 mg PO PRN PRN PRN Reason: Diarrhea/Loose Stools Metformin HCl (Glucophage) 500 mg PO BID-[facility] Mineral Oil/White Petrolatum (Eucerin Cream) 0 gm TOP BIDPRN PRN PRN Reason: Dry Skin Ondansetron HCl (Zofran Odt) 4 mg PO Q6H PRN PRN Reason: Nausea/Vomiting Last Admin: 07/28/18 04:40 Dose: 4 mg Ondansetron HCl (Zofran) 4 mg IVP Q6H PRN PRN Reason: Nausea/Vomiting Last Admin: 07/27/18 23:09 Dose: 4 mg Oxycodone HCl (Oxycodone Ir) 5 mg PO Q4H PRN PRN Reason: Moderate Pain (4-6) Last Admin: 07/28/18 12:30 Dose: 5 mg Senna/Docusate Sodium (Senokot S) 2 tab PO BID PRN PRN Reason: Constipation Sodium Chloride ([place] Nasal [place] 0.65%) 0 ml EA NARE QIDPRN PRN PRN Reason: Nasal Congestion Sodium Chloride (Flush - Normal Saline) 10 ml IVF Q12HR [facility] Last Admin: 07/28/18 00:01 Dose: 10 ml Sodium Chloride (Flush - Normal Saline) 10 ml IVF PRN PRN PRN Reason: Saline Flush
[2018-07-28] MEDS: metFORMIN 500 MG TAB PO SCH (17:19)
[2018-07-28 18:52] LABS: Benzodiazepine Screen Detected (NotDetected); Medtox Reader # READER 4; Opiate Screen Detected (NotDetected)
[2018-07-28 18:53] LABS: Amphetamine Not Detected (NotDetected); Barbiturates Screen Not Detected (NotDetected); Cocaine Metabolite Screen Not Detected (NotDetected); Medtox Control Line Valid? VALID (VALID); Methadone Not Detected (NotDetected); Methamphetamine Not Detected (NotDetected); Oxycodone Screen Not Detected (NotDetected); Phencyclidine (PCP) Not Detected (NotDetected); THC/Cannabinoid Screen Not Detected (NotDetected); Tricyclic Screen Not Detected (NotDetected)
[2018-07-29] MEDS: HumaLOG 300 UNITS/3 ML VIAL SC PRN ×4 (06:12→20:10)
[2018-07-29] MEDS ORDERED: Fenofibrate Nanocrystallized 145 MG TAB PO SCH (09:00)
[2018-07-29] MEDS: oxyCODONE 5 MG TAB PO PRN ×3 (09:02→17:45)
[2018-07-29] MEDS: Aspirin Chewable 81 MG TAB PO SCH (09:02)
[2018-07-29] MEDS: Famotidine 20 MG TAB PO SCH ×2 (09:02→20:07)
[2018-07-29] MEDS: Apixaban 5 MG TAB PO SCH (09:03)
[2018-07-29] MEDS: metFORMIN 500 MG TAB PO SCH ×2 (09:03→17:35)
[2018-07-29] MEDS: Insulin Glargine 10 UNITS in Pre-Filled Syringe 1 EACH SC SCH (09:04)
[2018-07-29] MEDS: Famotidine/PF 20 mg/2ml Vial SLOW IVP SCH (09:04)
--- NOTE | 2018-07-29 15:07 | CT ---
CTA of the head with and without IV contrast and 3-D reformatted imaging. CTA of the neck with IV contrast and 3-D reformatted imaging 3 D Volume Rendering: DATE: 07/27/2018 12:00 AM HISTORY: Right-sided weakness and right facial droop, new onset. Clinical history of stroke COMPARISON: None FINDINGS: Right: CCA:No significant stenosis. ICA:No significant stenosis. MCA:No significant stenosis. LAUREN:No significant stenosis. HR LEADER:No significant stenosis. LEFT: CCA:No significant stenosis. ICA:No significant stenosis. MCA:No significant stenosis. LAUREN:No significant stenosis. HR LEADER:No significant stenosis. Vertebrobasilar System: Left Vertebral:No significant stenosis. Right Vertebral:No significant stenosis. Basilar:No significant stenosis. IMPRESSION: No hemodynamically significant stenosis, occlusion or aneurysmal dilation. Notification of findings placed at 1927 hours. Transcribed Date/Time: 07/29/2018 3:07 PM
[2018-07-29] MEDS ORDERED: diphenhydrAMINE 50 MG/ML VIAL IVP SCH (20:30)
--- NOTE | 2018-07-29 22:09 | PDOC.PN ---
- Subjective Encounter Start Date: 07/29/18 Encounter Start Time: 10:15 Patient seen and examined for Acute CVA. No new focal deficits. Deficits unchanged. No new complaints. No overnight events - Objective Resuscitation Status - Order Detail: 07/27/18 22:08 Resuscitation Status Routine Resuscitation Status: FULL: Full Resuscitation MAR Reviewed: Yes Vital Signs & Weight: Vital Signs (12 hours) Temp Pulse Resp BP Pulse Ox 07/29/18 20:30 98.3 F 100 20 162/95 H 93 L 07/29/18 16:00 98.2 F 78 16 137/71 92 L 07/29/18 11:40 97.5 F L 79 18 104/78 93 L Weight Weight 204 lb I&O: 07/28/18 07/29/18 07/30/18 06:59 06:59 06:59 Intake Total 610 960 Balance 610 960 Result Diagrams: 07/28/18 05:21 07/28/18 05:21 Additional Labs: Accuchecks 07/29/18 07/29/18 10:58 05:58 POC Glucose 248 H 228 H EKG Reviewed by me: Yes (Tele SR) Phys Exam - Physical Examination Constitutional: NAD Respiratory: no wheezing, no rhonchi Cardiovascular: RRR, no rub Gastrointestinal: soft, non-tender, positive bowel sounds Musculoskeletal: no edema Dx/Plan - Plan DVT proph w/SCDs 1. Acute small vessel CVA 2. DM2 - uncontrolled 3. HTN 4. Abn LFTs 5. Chronic venous thromboembolism - on Eliquis 6. Chronic diastolic HF - stage C 7. Obesity BMI 31 PLAN: Await Neuro input Cont ASA Cont home dose of Eliquis Cont current meds as below Started on Insulin Insulin teaching DC in 24 hr if stable Outpt HHC at dc Review of Systems - Review of Systems Respiratory: negative: Cough, Dry, Shortness of Breath, Hemoptysis, SOB with Excertion, Pleuritic Pain, Sputum, Wheezing Cardiovascular: negative: chest pain, palpitations, orthopnea, paroxysmal nocturnal dyspnea, edema, light headedness, other - Medications/Allergies Allergies/Adverse Reactions: Allergies Allergy/AdvReac Type Severity Reaction Status Date / Time celecoxib [From Celebrex] Allergy Verified 07/27/18 22:41 ketorolac [From Toradol] Allergy Verified 07/27/18 22:41 tramadol Allergy Verified 07/27/18 22:41 Medications: Current Medications Acetaminophen (Tylenol) 650 mg PO Q4H PRN PRN Reason: Headache/Fever/Mild Pain (1-3) Last Admin: 07/28/18 08:38 Dose: 650 mg Apixaban (Eliquis) 5 mg PO DAILY [facility] Last Admin: 07/29/18 09:03 Dose: 5 mg Artificial Tears (Tears Naturale) 2 drop EA EYE PRN PRN PRN Reason: Dry Eyes Aspirin (Aspirin Chewable) 81 mg PO DAILY [facility] Last Admin: 07/29/18 09:02 Dose: 81 mg Bisacodyl (Dulcolax) 10 mg [place] DAILYPRN PRN PRN Reason: Constipation Dextrose/Water (Dextrose 50%) 25 gm SLOW IVP PRN PRN PRN Reason: Hypoglycemia Diphenhydramine HCl (Benadryl) 50 mg IVP NOW [facility] Stop: 07/29/18 22:30 Last Admin: 07/29/18 20:25 Dose: 50 mg Famotidine (Pepcid) 20 mg PO BID [facility] Last Admin: 07/29/18 20:07 Dose: 20 mg Fenofibrate (Tricor) 145 mg PO DAILY [facility] Last Admin: 07/29/18 09:02 Dose: 145 mg Glucagon (Glucagon) 1 mg IM PRN PRN PRN Reason: Hypoglycemia Guaifenesin (Robitussin Sf) 200 mg PO Q4H PRN PRN Reason: Cough Hydralazine HCl (Apresoline) 10 mg SLOW IVP Q4H PRN PRN Reason: SBP > 180 and HR < 70 Last Admin: 07/28/18 08:23 Dose: 10 mg Dextrose/Water (D5w) 1,000 mls @ 0 mls/hr IV .Q0M PRN PRN Reason: Hypoglycemia Insulin Glargine 10 units/ (Miscellaneous Medication) 0.1 mls @ 0 mls/hr SC QAM [facility] Last Admin: 07/29/18 09:04 Dose: 0.1 mls Insulin Human Lispro (Humalog) 0 units SC .MODERATE SLIDING SC PRN PRN Reason: Moderate Correctional Scale Last Admin: 07/29/18 17:35 Dose: 4 unit Insulin Human Lispro (Humalog) 0 units SC .BEDTIME SLIDING SC PRN PRN Reason: Bedtime Correctional Scale Last Admin: 07/29/18 20:10 Dose: 2 unit Loperamide HCl (Imodium) 2 mg PO PRN PRN PRN Reason: Diarrhea/Loose Stools Metformin HCl (Glucophage) 500 mg PO BID-[facility] Last Admin: 07/29/18 17:35 Dose: 500 mg Mineral Oil/White Petrolatum (Eucerin Cream) 0 gm TOP BIDPRN PRN PRN Reason: Dry Skin Ondansetron HCl (Zofran Odt) 4 mg PO Q6H PRN PRN Reason: Nausea/Vomiting Last Admin: 07/28/18 04:40 Dose: 4 mg Ondansetron HCl (Zofran) 4 mg IVP Q6H PRN PRN Reason: Nausea/Vomiting Last Admin: 07/27/18 23:09 Dose: 4 mg Oxycodone HCl (Oxycodone Ir) 5 mg PO Q4H PRN PRN Reason: Moderate Pain (4-6) Last Admin: 07/29/18 17:45 Dose: 5 mg Senna/Docusate Sodium (Senokot S) 2 tab PO BID PRN PRN Reason: Constipation Sodium Chloride ([place] Nasal [place] 0.65%) 0 ml EA NARE QIDPRN PRN PRN Reason: Nasal Congestion Sodium Chloride (Flush - Normal Saline) 10 ml IVF Q12HR [facility] Last Admin: 07/29/18 20:07 Dose: 10 ml Sodium Chloride (Flush - Normal Saline) 10 ml IVF PRN PRN PRN Reason: Saline Flush
--- NOTE | 2018-07-29 23:55 | CON ---
DATE OF CONSULTATION: 07/29/2018 CONSULTING PHYSICIAN: Hospitalist Service. IMPRESSION: 1. Psychogenic facial weakness. 2. History of deep venous thrombosis with hypercoagulable state. 3. Diabetes. 4. Prior deep venous thrombosis. PLAN: 1. Statin to address her hyperlipidemia. 2. The patient will be discharged home at your discretion. HISTORY OF PRESENT ILLNESS: Ms. Frank is a 42-year-old woman, with the above noted problems, who presented with complaints of difficulty talking and right facial weakness and numbness. She had a CT and CTA done on arrival, which were both unremarkable. Subsequent MRI of the brain was also normal. Her echocardiogram shows a normal ejection fraction of 50% to 55%. She continues to complain of the same symptoms that her right side of her face feels numb and does not want to work right. PAST MEDICAL HISTORY: As listed above. ALLERGIES: TRAMADOL. SOCIAL HISTORY: No tobacco or drug use reported. MEDICATIONS: List was reviewed which includes; 1. Eliquis. 2. Aspirin. FAMILY HISTORY: Noncontributory. REVIEW OF SYSTEMS: Ten system review of systems is otherwise negative. PHYSICAL EXAMINATION: GENERAL: She is a well-nourished middle-aged woman, in no distress. VITAL SIGNS: Stable. She has been afebrile. HEENT: Pupils equal and reactive. Conjunctivae clear. Oropharynx clear. NECK: Supple. EXTREMITIES: No cyanosis, clubbing, or edema. NEUROLOGIC: She was alert and cooperative. Her speech was fluent and clear. Cranial nerve exam was notable for what appeared to be a purposeful pulling of the right corner of her mouth to the side. She reported decreased sensation in the right lower face. The remainder of cranial nerves were intact. Motor exam showed symmetric strength. There is no tremor or dysmetria present. No abnormal movements were seen. SUMMARY: A 42-year-old woman with atypical facial complaints that would appear to be psychogenic in origin. I have reassured her that the situation should improve. There is an unlikely possibility of 7th and 5th nerve partial paresis secondary to a viral infection which would recover spontaneously. Job ID: [id number]
[2018-07-30] MEDS ORDERED: hydrOXYzine 25 MG TAB PO PRN (00:59)
[2018-07-30] MEDS: oxyCODONE 5 MG TAB PO PRN ×2 (02:09→09:15)
[2018-07-30] MEDS: HumaLOG 300 UNITS/3 ML VIAL SC PRN ×2 (05:16→11:01)
[2018-07-30] MEDS: metFORMIN 500 MG TAB PO SCH (09:16)
[2018-07-30] MEDS: Famotidine 20 MG TAB PO SCH (09:16)
[2018-07-30] MEDS: Apixaban 5 MG TAB PO SCH (09:16)
[2018-07-30] MEDS: Aspirin Chewable 81 MG TAB PO SCH (09:17)
[2018-07-30] MEDS: Insulin Glargine 10 UNITS in Pre-Filled Syringe 1 EACH SC SCH (09:46)
[2018-07-30 11:46] VITALS: BP 151/88; TEMP 98.3
--- NOTE | 2018-07-30 12:33 | DIS ---
DATE OF ADMISSION: 07/27/2018 DATE OF DISCHARGE: 07/30/2018 DISCHARGE DISPOSITION: Home. PRIMARY DISCHARGE DIAGNOSES: 1. Right-sided weakness. 2. Right-sided facial weakness. 3. Abnormal LFT due to metabolic syndrome. 4. Diastolic dysfunction. 5. Diabetes, type 2. SECONDARY DISCHARGE DIAGNOSIS: 1. Hypertension. 2. Dyslipidemia. 3. History of recurrent deep venous thrombosis. 4. Obesity with BMI 31. PRIMARY PROCEDURE/OPERATION: None. RADIOLOGICAL INVESTIGATION: CT brain negative. CT [place] negative. Echocardiography, diastolic dysfunction. MRI brain, negative. Abdomen ultrasound, fatty liver. SIGNIFICANT LABORATORY DATA: Hemoglobin 13.2. INR 1.1. Sodium 130. AST 301, ALT 209. LDL 267. Homocystine 4.56. Hemoglobin A1c 11.5. Urinalysis normal. Hepatitis profile negative. DISCHARGE MEDICATIONS: 1. Eliquis 5 mg p.o. daily. 2. Aspirin 81 mg p.o. daily. 3. Lipitor 40 mg p.o. at bedtime. 4. Glyburide 2.5 mg p.o. b.i.d. 5. Metformin 1000 mg p.o. b.i.d. 6. Lisinopril 5 mg p.o. daily. CONTRAINDICATION: None. CODE STATUS: Full code. INPATIENT CONSULT: Neurology was consulted while in hospital. TEST RESULTS PENDING ON DISCHARGE: None. ALLERGIES: CELECOXIB, TORADOL, AND TRAMADOL. DISCHARGE PLAN: Posthospital, the patient will follow up with primary care physician in 1 week. HOSPITAL COURSE: A 42-year-old female, who was admitted by me. Please see my HPI for further details. The patient was having right-sided weakness and right-sided facial weakness. Initial workup in the emergency room, CT scan was negative. CT [place] was also negative and echocardiography showed diastolic dysfunction. MRI was also normal. Neurology was thinking that the patient has psychogenic origin of right facial weakness and right-sided weakness. At this time, we found that the patient has new diabetes. She also had abnormal LFT, that is why we did ultrasound and hepatitis profile, which was negative. The patient has the complete metabolic syndrome and during this admission, we started on metformin and glyburide. The patient does not want to take insulin at home and that is why we have to change Lantus to glyburide. The patient will continue all other previous medication. For blood pressure, we also started lisinopril. I have seen and examined the patient at the bedside today personally and necessary the patient education about diet is given. Dietary instruction is also given. Healthy lifestyle measure discussed with the patient and all new medication prescription sent to her pharmacy. Job ID: [id number]
--- NOTE | 2018-07-30 13:18 | PDOC.PN ---
- Subjective Encounter Start Date: 07/30/18 Encounter Start Time: 09:40 -: old records requested/rev Patient seen and examined. No new complaints. No overnight events - Objective Resuscitation Status - Order Detail: 07/27/18 22:08 Resuscitation Status Routine Resuscitation Status: FULL: Full Resuscitation MAR Reviewed: Yes Vital Signs & Weight: Vital Signs (12 hours) Temp Pulse Resp BP Pulse Ox 07/30/18 11:44 98.3 F 85 18 151/88 H 95 07/30/18 09:15 97 07/30/18 07:39 97.8 F 79 16 129/74 97 07/30/18 03:52 97.7 F 80 20 137/78 95 Weight Weight 204 lb I&O: 07/29/18 07/30/18 07/31/18 06:59 06:59 06:59 Intake Total 610 1670 Balance 610 1670 Result Diagrams: 07/28/18 05:21 07/28/18 05:21 Additional Labs: Accuchecks 07/30/18 07/30/18 07/29/18 10:30 05:09 21:31 POC Glucose 207 H 196 H 232 H 07/29/18 07/29/18 20:11 16:33 POC Glucose 235 H 204 H EKG Reviewed by me: Yes Phys Exam - Physical Examination Constitutional: NAD HEENT: PERRLA, moist MMs, sclera anicteric Neck: no JVD, supple Respiratory: no wheezing, no rales, no rhonchi Cardiovascular: RRR, no significant murmur, no rub Gastrointestinal: soft, non-tender, no distention, positive bowel sounds Musculoskeletal: no edema, pulses present Neurological: moves all 4 limbs Lymphatic: no nodes Psychiatric: normal affect, A&O x 3 Skin: no rash, normal turgor Dx/Plan (1) Right sided weakness Code(s): R53.1 - WEAKNESS Status: Acute (2) Abnormal LFTs Code(s): R94.5 - ABNORMAL RESULTS OF LIVER FUNCTION STUDIES Status: Chronic (3) Chronic anticoagulation Code(s): Z79.01 - [employer] (CURRENT) USE OF ANTICOAGULANTS Status: Chronic (4) Diastolic dysfunction Code(s): I51.89 - OTHER ILL-DEFINED HEART DISEASES Status: Chronic (5) H/O deep venous thrombosis Code(s): Z86.718 - PERSONAL HISTORY OF OTHER VENOUS THROMBOSIS AND EMBOLISM Status: Chronic (6) HLD (hyperlipidemia) Code(s): E78.5 - HYPERLIPIDEMIA, UNSPECIFIED Status: Chronic (7) HTN (hypertension) Code(s): I10 - ESSENTIAL (PRIMARY) HYPERTENSION Status: Chronic (8) Metabolic syndrome Code(s): E88.81 - METABOLIC SYNDROME Status: Chronic - Plan cont current plan of care * medication reviewed as below * symptomatic treatment * see discharge blue. Review of Systems - Review of Systems ENT: negative: Ear Pain, Ear Discharge, Nose Pain, Nose Discharge, Nose Congestion, Mouth Pain, Mouth Swelling, Throat Pain, Throat Swelling, Other Respiratory: negative: Cough, Dry, Shortness of Breath, Hemoptysis, SOB with Excertion, Pleuritic Pain, Sputum, Wheezing Cardiovascular: negative: chest pain, palpitations, orthopnea, paroxysmal nocturnal dyspnea, edema, light headedness, other Gastrointestinal: negative: Nausea, Vomiting, Abdominal Pain, Diarrhea, Constipation, Melena, Hematochezia, Other Genitourinary: negative: Dysuria, Frequency, Incontinence, Hematuria, Retention , Other Musculoskeletal: negative: Neck Pain, Shoulder Pain, Arm Pain, Back Pain, Hand Pain, Leg Pain, Foot Pain, Other - Medications/Allergies Allergies/Adverse Reactions: Allergies Allergy/AdvReac Type Severity Reaction Status Date / Time celecoxib [From Celebrex] Allergy Verified 07/27/18 22:41 ketorolac [From Toradol] Allergy Verified 07/27/18 22:41 tramadol Allergy Verified 07/27/18 22:41
[2018-07-30 15:31] LABS: ANA Symphony (Qualitative) Negative (Negative); ANA Symphony (Quantitative) 0.1 Ratio (< 0.7 Negative); dsDNA IgG Antibody Less than 0.5 IU/mL (<10 Negative)
[2018-07-30] MEDS ORDERED: Atorvastatin Calcium 10 MG TAB PO SCH (21:00)
== END 2018-07-30 12:35 | disposition home or self-care (01) | DRG 92 ==
LOC: ERS 18:57 → OBSVTOIN 22:14 → 2SE 22:14
PROVIDERS: ADMIT Family Medicine; ATTEND Family Medicine
DX: R29.810 Facial weakness (principal); I50.32 Chronic diastolic (congestive) heart failure; R53.1 Weakness; K21.9 Gastro-esophageal reflux disease without esophagitis; E11.9 Type 2 diabetes mellitus without complications; E78.5 Hyperlipidemia, unspecified; E66.9 Obesity, unspecified; E88.81 Metabolic syndrome and other insulin resistance; I11.0 Hypertensive heart disease with heart failure; Z88.8 Allergy status to other drugs, medicaments and biological substances; Z79.01 Long term (current) use of anticoagulants; Z86.718 Personal history of other venous thrombosis and embolism; Z86.711 Personal history of pulmonary embolism; Z90.710 Acquired absence of both cervix and uterus; Z98.890 Other specified postprocedural states; Z68.31 Body mass index [BMI] 31.0-31.9, adult
CPT/HCPCS: 36415; 36416; 70450; 70496; 70498; 70551; 76705; 80053; 80061; 80074; 80306; 80307; 81003; 82550; 83036; 83090; 84484; 85025; 85610; 85652; 85730; 86038; 86225; 86780; 93005; 93306; 96365; 96375; J0360; J1200; J1825; J2060; J2270; J2405; J2765; J2930; J3475; Q0162; Q9966

== ENCOUNTER 2018-10-06 21:48 | Emergency (ER) | payer BC ==
[2018-10-06 22:24] LABS: Hemoglobin 13.2 g/dL (12.0-16.0); Mean Corpuscular Volume 93.9 fL (78.0-98.0); Mean Platelet Volume 6.5 fL (7.4-10.4); Platelet Count 256 thou/uL (130-400); RBC Distribution Width 11.3 % (11.5-14.5); Red Blood Cell (RBC) Count 4.12 mill/uL (4.20-5.40); White Blood Cell (WBC) Count 8.6 thou/uL (4.8-10.8)
[2018-10-06 22:28] LABS: Bilirubin Negative (Negative); Blood, Urine Negative (Negative); Clarity CLEAR (Clear); Glucose, Urine (Dipstick) >=1000 mg/dL (Negative); Leukocyte Negative (Negative); Nitrite Negative (Negative); Protein, Urine (Dipstick) Negative (Neg-Trace); Urobilinogen 0.2 mg/dL (0.2-1.0)
[2018-10-06 22:30] LABS: Pregnancy Test - Urine (BHCG) Negative (Negative); Pregu Control Background? CLEAR/WHITE (CLR/WHITE); Pregu Control Bar Appear? YES (CONTROL BAR); Specific Gravity 1.042 (1.002-1.036); Specific Gravity, Urine 1.042 (1.002-1.036)
[2018-10-06 22:47] LABS: ALT (SGPT) 83 U/L (8-55); AST (SGOT) 61 U/L (5-34); Albumin 4.6 g/dL (3.5-5.0); Alkaline Phosphatase 76 U/L (40-150); Anion Gap 16 mmol/L (10-20); BUN (Urea Nitrogen) 14 mg/dL (7.0-18.7); Band 1 % (5-11); Bilirubin, Total 0.3 mg/dL (0.2-1.2); Calc. Creatinine Clearance 0 mL/min (70-130); Calcium 9.4 mg/dL (7.8-10.44); Carbon Dioxide 21 mmol/L (22-29); Chloride 102 mmol/L (98-107); Estimated GFR-MDRD 56; Glucose 324 mg/dL (70-105); Lymphocytes 42 % (21-51); MDiff Complete? YES; Monocytes 2 % (0-10); Neutrophil 55 % (42-75); Platelet Morphology Comment Appears Adequate; Potassium 4.2 mmol/L (3.5-5.1); Protein, Total 8.6 g/dL (6.0-8.3); RBC Morphology Normal; Sodium 135 mmol/L (136-145)
--- NOTE | 2018-10-06 22:47 | CT ---
CT Brain WO Con HISTORY: Headache altered mental status. COMPARISON: 07/27/2018 exam. FINDINGS: The ventricular and cisternal system is within normal limits. There are no signs of intrace rebral hemorrhage or extra-axial fluid collections. The mastoid air cells and visualized sinuses are clear. IMPRESSION: No acute intracranial abnormalities.
[2018-10-06] MEDS ORDERED: Ondansetron ODT 4 MG TAB ONE (23:42)
[2018-10-06] MEDS ORDERED: Acetaminophen 500 MG TAB ONE (23:42)
--- NOTE | 2018-10-11 10:30 | EKG ---
Test Reason : Blood Pressure : / mmHG Vent. Rate : 099 BPM Atrial Rate : 099 BPM P-R Int : 128 ms QRS Dur : 098 ms QT Int : 332 ms P-R-T Axes : 018 -09 017 degrees QTc Int : 426 ms Normal sinus rhythm Voltage criteria for left ventricular hypertrophy Nonspecific ST and T wave abnormality Abnormal ECG Confirmed by CARLOS PARTIDA M.D. ([id number]), marketing editor RICK RODAS ([id number] on 10/11/2018 10:29:44 AM Referred By: Confirmed By:CARLOS PARTIDA M.D.
== END 2018-10-07 00:22 | disposition home or self-care (01) ==
LOC: ERS 21:48
DX: E11.65 Type 2 diabetes mellitus with hyperglycemia (principal); R51 Headache; I10 Essential (primary) hypertension; E78.5 Hyperlipidemia, unspecified; Z86.73 Personal history of transient ischemic attack (TIA), and cerebral infarction without residual deficits; Z86.711 Personal history of pulmonary embolism; Z86.718 Personal history of other venous thrombosis and embolism; Z79.82 Long term (current) use of aspirin; Z79.84 Long term (current) use of oral hypoglycemic drugs; Z79.899 Other long term (current) drug therapy
CPT/HCPCS: 36415; 36416; 70450; 80053; 81003; 81025; 85025; 93005; Q0162

== ENCOUNTER 2018-11-15 00:19 | Emergency (ER) | payer BC, SELFPAY ==
[2018-11-15] MEDS ORDERED: Proparacaine 0.5% Opth 15 ML BOT ONE (01:34)
[2018-11-15] MEDS ORDERED: Fluorescein Opthalmic Strip ONE (01:34)
[2018-11-15] MEDS ORDERED: Ondansetron ODT 4 MG TAB ONE (01:36)
[2018-11-15] MEDS ORDERED: HYDROcodone/Acetaminophen 10/325 mg Tablet ONE (02:36)
[2018-11-15] MEDS ORDERED: Ondansetron PF 4 MG/2 ML Vial ONE (03:31)
[2018-11-15 03:45] LABS: #Basophils 0.1 thou/uL (0.0-0.2); #Eosinphils 0.2 thou/uL (0.0-0.7); #Lymphocytes 4.2 thou/uL (1.20-3.40); #Monocytes 0.9 thou/uL (0.11-0.59); #Neutrophils 5.2 thou/uL (1.40-6.50); %Basophils 0.6 % (0.0-1.0); %Eosinophils 1.8 % (0.0-10.0); %Lymphocytes 39.7 % (21.0-51.0); %Monocytes 8.7 % (0.0-10.0); %Neutrophils 49.2 % (42.0-75.0); Hemoglobin 13.4 g/dL (12.0-16.0); Mean Corpuscular HGB CONC 34.3 g/dL (32.0-36.0); Mean Corpuscular Hemoglobin 31.5 pg (27.0-31.0); Mean Corpuscular Volume 91.7 fL (78.0-98.0); Mean Platelet Volume 7.1 fL (7.4-10.4); Platelet Count 244 thou/uL (130-400); RBC Distribution Width 11.2 % (11.5-14.5); Red Blood Cell (RBC) Count 4.27 mill/uL (4.20-5.40); White Blood Cell (WBC) Count 10.6 thou/uL (4.8-10.8)
[2018-11-15 04:05] LABS: ALT (SGPT) 168 U/L (8-55); AST (SGOT) 178 U/L (5-34); Albumin 4.6 g/dL (3.5-5.0); Alkaline Phosphatase 80 U/L (40-150); Anion Gap 16 mmol/L (10-20); BUN (Urea Nitrogen) 11 mg/dL (7.0-18.7); Bilirubin, Total 0.8 mg/dL (0.2-1.2); Calc. Creatinine Clearance 0 mL/min (70-130); Calcium 10.3 mg/dL (7.8-10.44); Carbon Dioxide 26 mmol/L (22-29); Chloride 97 mmol/L (98-107); Estimated GFR-MDRD 64; Globulin 4.3 g/dL (2.4-3.5); Glucose 243 mg/dL (70-105); Potassium 3.9 mmol/L (3.5-5.1); Protein, Total 8.9 g/dL (6.0-8.3); Sodium 135 mmol/L (136-145)
[2018-11-15] MEDS ORDERED: diphenhydrAMINE 50 MG/ML VIAL ONE (05:03)
[2018-11-15] MEDS ORDERED: Metoclopramide HCl 10 MG/2 ML VIAL ONE (05:03)
--- NOTE | 2018-11-15 09:26 | CT ---
PRELIMINARY REPORT/[facility]/EMERGENCY AFTER HOURS PROCEDURE: EXAM: CT Head Without Contrast EXAM DATE/TIME: 11/15/2018 3:37 AM CLINICAL HISTORY: 43 years old, female; Patient HX: 43f presenting with right eye pain, redness and drainage x 3 hours. PT reports right sided headache and nausea/vomiting since pain started. TECHNIQUE: Imaging protocol: Computed tomography images of the head without contrast. COMPARISON: No relevant prior studies available. FINDINGS: Brain: No acute findings. No hemorrhage. No significant white matter disease. No edema. Ventricles: No acute findings. No ventriculomegaly. Bones/joints: No acute fracture. Sinuses: No acute findings. No significant air-fluid levels. Mastoid air cells: No acute findings. No mastoid effusion. Soft tissues: No acute findings. IMPRESSION: No acute intracranial abnormality. Thank you for allowing us to participate in the care of your patient. Dictated and Authenticated by: Alexis Glass MD 11/15/2018 4:25 AM Central Time ([place] & [place]) FINAL REPORT EMERGENCY AFTER HOURS CT BRAIN: Date: 11/15/18 FINDINGS/IMPRESSION: I agree with the preliminary report provided by [facility]. No acute intracranial abnormality demonstrated. POS: [facility]
== END 2018-11-15 05:38 | disposition home or self-care (01) ==
LOC: ERS 00:19
DX: S05.01XA Injury of conjunctiva and corneal abrasion without foreign body, right eye, initial encounter (principal); I10 Essential (primary) hypertension; R11.2 Nausea with vomiting, unspecified; E11.9 Type 2 diabetes mellitus without complications; E78.5 Hyperlipidemia, unspecified; Z86.718 Personal history of other venous thrombosis and embolism; Z86.711 Personal history of pulmonary embolism; Z86.73 Personal history of transient ischemic attack (TIA), and cerebral infarction without residual deficits; Z79.84 Long term (current) use of oral hypoglycemic drugs; Z79.82 Long term (current) use of aspirin; Z79.899 Other long term (current) drug therapy; X58.XXXA Exposure to other specified factors, initial encounter
CPT/HCPCS: 70450; 80053; 85025; 85652; 96374; J1200; J2405; J2765; Q0162